=== PATIENT | female | born 1995 | race Caucasian/White ===

== ENCOUNTER 2016-07-25 22:56 | Emergency (ER) | payer OTHER ==
[2016-07-25 23:12] VITALS: BP 116/70; PULSE 97; TEMP 98.1; BMI 29.0
--- NOTE | 2016-07-25 23:18 | PDOC ---
History of Present Illness - General History Source: Patient Exam Limitations: No Limitations - History of Present Illness Initial Comments: 07/25/16 23:48 The patient is a 21 year old female with history of asthma who presents to the ED complaining of 1 week of nausea with suprapubic cramping and 3 days of blood streaked stool. No abdominal pain, vomiting, diarrhea, or constipation. No fever or chills. No urinary complaints. LMP 6 weeks ago, now spotting. <Juliette Fuchs - Last Filed: 07/25/16 23:48> <Kae Addison - Last Filed: 07/26/16 23:24> - General Chief Complaint: Nausea/Vomiting Stated Complaint: NAUSEA Time Seen by Provider: 07/25/16 23:17 Past History <Juliette Fuchs - Last Filed: 07/25/16 23:48> - Past Medical History Asthma: Yes - Immunization History Immunization Up to Date: Yes - Psycho/Social/Smoking Cessation Hx Anxiety: No Suicidal Ideation: No Smoking History: Never smoked Number of Cigarettes Smoked Daily: 0 Hx Alcohol Use: No Drug/Substance Use Hx: No Substance Use Type: None <Kae Addison - Last Filed: 07/26/16 23:24> - Past Medical History Allergies/Adverse Reactions: Allergies Allergy/AdvReac Type Severity Reaction Status Date / Time No Known Allergies Allergy Verified 07/25/16 23:09 Home Medications: Ambulatory Orders Nitrofurantoin Monohyd/M-Cryst [Macrobid -] 100 mg PO BID #14 capsule 07/25/16 Nitrofurantoin Monohyd/M-Cryst [Macrobid -] 100 mg PO BID #14 capsule 07/25/16 Review of Systems - Review of Systems Able to Perform ROS?: Yes Comments:: 07/25/16 23:53 GENERAL/CONSTITUTIONAL: No fever or chills. No weakness. HEAD, EYES, EARS, NOSE AND THROAT: No change in vision. No ear pain or discharge. No sore throat CARDIOVASCULAR: No chest pain or shortness of breath. RESPIRATORY: No cough, wheezing, or hemoptysis. GASTROINTESTINAL: +Nausea, +blood streaked stool. No vomiting, diarrhea or constipation. GENITOURINARY: No dysuria, frequency, or change in urination. MUSCULOSKELETAL: No joint or muscle swelling or pain. No neck or back pain. SKIN: No rash NEUROLOGIC: No headache, vertigo, loss of consciousness, or change in strength/ sensation. ENDOCRINE: No increased thirst. No abnormal weight change. HEMATOLOGIC/LYMPHATIC: No anemia, easy bleeding, or history of blood clots. ALLERGIC/IMMUNOLOGIC: No hives or skin allergy. <Juliette Fuchs - Last Filed: 07/25/16 23:48> *Physical Exam - Vital Signs Last Vital Signs Temp Pulse Resp BP Pulse Ox 98.1 F 97 H 18 116/70 100 07/25/16 23:11 07/25/16 23:11 07/25/16 23:11 07/25/16 23:11 07/25/16 23:11 - Physical Exam Comments: 07/26/16 00:08 GENERAL: Awake, alert, and fully oriented, in no acute distress HEAD: No signs of trauma EYES: PERRLA, EOMI, sclera anicteric, conjunctiva clear ENT: Auricles normal inspection, hearing grossly normal, nares patent, oropharynx clear without exudates. Moist mucosa NECK: Normal ROM, supple, no lymphadenopathy, JVD, or masses LUNGS: Breath sounds equal, clear to auscultation bilaterally. No wheezes, and no crackles HEART: Regular rate and rhythm, normal S1 and S2, no murmurs, rubs or gallops ABDOMEN: +Mild suprapubic tenderness. Soft, normoactive bowel sounds. No guarding, no rebound. No masses EXTREMITIES: Normal range of motion, no edema. No clubbing or cyanosis. No cords, erythema, or tenderness NEUROLOGICAL: Cranial nerves II through XII grossly intact. Normal speech, normal gait SKIN: Warm, Dry, normal turgor, no rashes or lesions noted. <Juliette Fuchs - Last Filed: 07/25/16 23:48> - Vital Signs Last Vital Signs Temp Pulse Resp BP Pulse Ox 98.1 F 97 H 18 116/70 100 07/25/16 23:11 07/25/16 23:11 07/25/16 23:11 07/25/16 23:11 07/25/16 23:11 <Kae Addison - Last Filed: 07/26/16 23:24> ED Treatment Course - ADDITIONAL ORDERS Additional order review: Laboratory Results 07/25/16 23:12 Urine Color Ltyellow Urine Appearance Clear Urine pH 5.0 Urine Protein Negative Urine Glucose (UA) Negative Urine Ketones Trace H Urine Blood 1+ H Urine Nitrite Negative Urine Bilirubin Negative Urine Urobilinogen Negative Ur Leukocyte Esterase 1+ H Urine RBC 3 Urine WBC 5 Ur Epithelial Cells Rare Urine Mucus Few Urine HCG, Qual Positive <Juliette Fuchs - Last Filed: 07/25/16 23:48> Medical Decision Making - Medical Decision Making 07/26/16 23:23 Pt has UTI in early . Boyfriend has chlamydia. I will treat UTI with macrobid. GC/CHlamydia culture pending. Pt wll follow with her manager action <Kae Addison - Last Filed: 07/26/16 23:24> *DC/Admit/Observation/Transfer - Attestations Scribe Attestion: 07/26/16 00:11 Documentation prepared by Juliette Fuchs, acting as medical data analyst for Kae Addison MD. <Juliette Fuchs - Last Filed: 07/25/16 23:48> - Discharge Dispostion Admit: No <Kae Addison - Last Filed: 07/26/16 23:24> Diagnosis at time of Disposition: UTI (urinary tract infection), test positive - Discharge Dispostion Disposition: HOME Condition at time of disposition: Stable - Prescriptions Prescriptions: Nitrofurantoin Monohyd/M-Cryst [Macrobid -] 100 mg PO BID #14 capsule Nitrofurantoin Monohyd/M-Cryst [Macrobid -] 100 mg PO BID #14 capsule - Referrals Referrals: Evelny Ugalde NP [Primary Care Provider] - Shayy Robertson MD [Staff Physician] - - Patient Instructions Printed Discharge Instructions: DI for Urinary Tract Infection (UTI)
[2016-07-25 23:26] LABS: URINE APPEARANCE CLEAR; URINE BILIRUBIN NEGATIVE (NEGATIVE); URINE COLOR LTYELLOW; URINE GLUCOSE (UA) NEGATIVE (NEGATIVE); URINE KETONE TRACE (NEGATIVE); URINE NITRITE NEGATIVE (NEGATIVE); URINE PROTEIN NEGATIVE (NEGATIVE); URINE UROBILINOGEN NEGATIVE E.U./dl (0.2-1.0)
[2016-07-25 23:28] LABS: URINE BLOOD 1+ (NEGATIVE); URINE LEUK ESTERASE 1+ (NEGATIVE)
[2016-07-25 23:30] LABS: URINE MUCUS FEW; URINE RBC 3 /hpf (0-3); URINE WBC 5 /hpf (3-5)
[2016-07-25] MEDS ORDERED: NITROFURANTOIN MACROCRYSTAL 50 MG CAPSULE (FP) PO SCH (23:45)
[2016-07-26] MEDS ORDERED: NITROFURANTOIN MACROCRYSTAL 50 MG CAPSULE (FP) ONE (00:19)
--- NOTE | 2016-07-29 14:13 | PDOC ---
Patient Follow-up (Call Back) - Post ED Follow - Up Condition at time of discharge: Stable Disposition at time of original discharge: HOME Reason for Call Back: Abnwl. Microbiology (lab called pt. + for chlamydia, - for GC, called pt. she was seen by adhesion tester at [facility] care today, they sent RX for treatment of chlamydia,)
== END 2016-07-26 00:49 | disposition home or self-care (01) ==
LOC: JER 22:56
DX: O23.31 Infections of other parts of urinary tract in pregnancy, first trimester (principal); Z3A.00 Weeks of gestation of pregnancy not specified; J45.909 Unspecified asthma, uncomplicated
CPT/HCPCS: 36415; 81003; 81015; 84703; 87491; 87591; 99282-25

== ENCOUNTER 2016-07-30 23:48 | Emergency (ER) | payer OTHER ==
[2016-07-31 00:20] VITALS: BP 124/73; PULSE 75; TEMP 97.4; BMI 28.9
[2016-07-31 00:50] LABS: EOSINOPHIL 1.5 % (0-4.5); MCH 29.2 pg (25.7-33.7); MCHC 33.3 g/dl (32.0-36.0); MEAN CELL VOLUME 87.9 fl (80-96); MEAN PLT VOLUME 9.1 fl (7.5-11.1); NEUTROPHILS 71.1 % (42.8-82.8); PLATELET COUNT 222 K/MM3 (134-434); RDW 12.8 % (11.6-15.6); WHITE BLOOD COUNT 10.6 K/mm3 (4.0-10.0)
[2016-07-31] MEDS ORDERED: SODIUM CHLORIDE 1,000 ML IV STA (01:04)
--- NOTE | 2016-07-31 01:04 | PDOC ---
History of Present Illness - History of Present Illness Initial Comments: 07/31/16 01:16 Patient is a 21 year old female (, 10 weeks) with significant medical hx of asthma who is presenting to the ED with heavy vaginal bleeding and lightheadedness for the past hour. The patient states her bleeding is significantly heavier than her normal menses and notes passing clots. She also complains of some associated suprapubic cramping since the onset of her symptoms. The patient states that she has not yet received an US with this . Denies any syncope, nausea, vomiting, diarrhea, complaints, chest pain, or shortness of breath. ASBESTOS HANDLER: Jess Gr CNM PMD: Evelyn Ugalde MD <Sofía Cotto - Last Filed: 07/31/16 01:19> <Jannette Hayes - Last Filed: 07/31/16 02:31> - General Chief Complaint: Vaginal Bleeding Stated Complaint: VAGINAL BLEEDING/10 WKS Past History <Sofía Cotto - Last Filed: 07/31/16 01:19> - Past Medical History Asthma: Yes - Immunization History Immunization Up to Date: Yes - Psycho/Social/Smoking Cessation Hx Anxiety: No Suicidal Ideation: No Smoking History: Never smoked Have you smoked in the past 12 months: No Number of Cigarettes Smoked Daily: 0 Information on smoking cessation initiated: No Hx Alcohol Use: No Drug/Substance Use Hx: No Substance Use Type: None <Jannette Hayes - Last Filed: 07/31/16 02:31> - Past Medical History Allergies/Adverse Reactions: Allergies Allergy/AdvReac Type Severity Reaction Status Date / Time No Known Allergies Allergy Verified 07/31/16 00:18 Home Medications: Ambulatory Orders NK [No Known Home Medication] 07/31/16 Review of Systems - Review of Systems Comments:: 07/31/16 01:19 GENERAL/CONSTITUTIONAL: No fever or chills. No weakness. HEAD, EYES, EARS, NOSE AND THROAT: No change in vision. No ear pain or discharge. No sore throat. CARDIOVASCULAR: Lightheadedness. No chest pain or shortness of breath. RESPIRATORY: No cough, wheezing, or hemoptysis. GASTROINTESTINAL: Abdominal cramping. No nausea, vomiting, diarrhea or constipation. GENITOURINARY: Vaginal bleeding. No dysuria, frequency, or change in urination. MUSCULOSKELETAL: No joint or muscle swelling or pain. No neck or back pain. ENDOCRINE: No increased thirst. No abnormal weight change. SKIN: No rash NEUROLOGIC: No headache, vertigo, loss of consciousness, or change in strength/ sensation. <KirtiSofía - Last Filed: 07/31/16 01:19> *Physical Exam - Vital Signs Last Vital Signs Temp Pulse Resp BP Pulse Ox 97.4 F L 75 20 124/73 100 07/31/16 00:18 07/31/16 00:18 07/31/16 00:18 07/31/16 00:18 07/31/16 00:18 - Physical Exam Comments: 07/31/16 01:20 GENERAL: Awake, alert, and fully oriented, in no acute distress HEAD: No signs of trauma EYES: PERRLA, EOMI, sclera anicteric, conjunctiva clear ENT: Auricles normal inspection, hearing grossly normal, nares patent, oropharynx clear without exudates. Moist mucosa NECK: Normal ROM, supple, no lymphadenopathy, JVD, or masses LUNGS: Breath sounds equal, clear to auscultation bilaterally. No wheezes, and no crackles HEART: Regular rate and rhythm, normal S1 and S2, no murmurs, rubs or gallops ABDOMEN: Soft, mild suprapubic tenderness, normoactive bowel sounds. No guarding, no rebound. No masses EXTREMITIES: Normal range of motion, no edema. No clubbing or cyanosis. No cords, erythema, or tenderness NEUROLOGICAL: Cranial nerves II through XII grossly intact. Normal speech, normal gait SKIN: Warm, Dry, normal turgor, no rashes or lesions noted. HEMATOLOGIC/LYMPHATIC: No anemia, easy bleeding, or history of blood clots. ALLERGIC/IMMUNOLOGIC: No hives or skin allergy. PELVIC: Cervix open few mm. Blood in vault. No CMT. No adnexal tenderness. <Sofía Cotto - Last Filed: 07/31/16 01:19> - Vital Signs Last Vital Signs Temp Pulse Resp BP Pulse Ox 97.4 F L 75 20 124/73 100 07/31/16 00:18 07/31/16 00:18 07/31/16 00:18 07/31/16 00:18 07/31/16 00:18 <Jannette Hayes - Last Filed: 07/31/16 02:31> ED Treatment Course - LABORATORY CBC & Chemistry Diagram: 07/31/16 00:20 07/31/16 00:20 - ADDITIONAL ORDERS Additional order review: 07/31/16 00:20 RBC 4.17 MCV 87.9 MCHC 33.3 RDW 12.8 MPV 9.1 Neutrophils % 71.1 D Lymphocytes % 19.7 D Monocytes % 6.7 Eosinophils % 1.5 Basophils % 1.0 <Sofía Cotto - Last Filed: 07/31/16 01:19> - LABORATORY CBC & Chemistry Diagram: 07/31/16 00:20 07/31/16 00:20 - ADDITIONAL ORDERS Additional order review: 07/31/16 00:20 RBC 4.17 MCV 87.9 MCHC 33.3 RDW 12.8 MPV 9.1 Neutrophils % 71.1 D Lymphocytes % 19.7 D Monocytes % 6.7 Eosinophils % 1.5 Basophils % 1.0 <Jannette Hayes - Last Filed: 07/31/16 02:31> Medical Decision Making - Medical Decision Making 07/31/16 01:02 21 yo F G1po at 10 weeks here wtih vaginal bleeding. 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 mild cramping. no abd pain . no prior ectopic or miscarriages. on exam mild suprapubic ttp, no rebound no guarding. no cmt, no adnexal masses. os open fingertip. blood in vaginal vault. differential: ecoptic, threatened ab, incomplete ab, plan labs blood tuype, c , us. 07/31/16 02:28 pt with confirmed IUP. yolk sac and pole. threatened ab. no detectable FHR at this time. recommend follow up with ob <Jannette Hayes - Last Filed: 07/31/16 02:31> *DC/Admit/Observation/Transfer - Attestations Scribe Attestion: 07/31/16 01:21 Documentation prepared by Sofía Cotto, acting as medical staff assistant for Jannette Hayes MD. <Sofía Cotto - Last Filed: 07/31/16 01:19> - Discharge Dispostion Admit: No <Jannette Hayes - Last Filed: 07/31/16 02:31> Diagnosis at time of Disposition: Threatened - Discharge Dispostion Disposition: HOME - Referrals Referrals: Evelyn Ugalde NP [Primary Care Provider] - - Patient Instructions Printed Discharge Instructions: Threatened Additional Instructions: follow up with your racker octave board. return for any problems or concerns. nothing per vagina until bleeding stops. return for feeling dizzy, lightheaded or any concerns.
[2016-07-31 01:23] LABS: ALBUMIN 3.6 g/dl (3.4-5.0); ANION GAP 9 (8-16); BILIRUBIN,TOTAL 0.4 mg/dL (0.2-1.0); CALCIUM 9.2 mg/dL (8.5-10.1); CO2 25 mmol/L (21-32); COCKROFT - GAULT 160.65; CREATININE 0.6 mg/dL (0.55-1.02); GLUCOSE,RANDOM 79 mg/dL (74-106); SGOT/AST 15 U/L (15-37); TOT PROT 6.9 g/dl (6.4-8.2)
[2016-07-31 01:39] LABS: ALK PHOS 48 U/L (45-117); SGPT/ALT 13 U/L (12-78)
== END 2016-07-31 02:54 | disposition home or self-care (01) ==
LOC: JER 23:48
PROC: 3E0337Z Introduction of Electrolytic and Water Balance Substance into Peripheral Vein, Percutaneous Approach (ICD-10-PCS; principal; 2016-07-30)
DX: O20.0 Threatened abortion (principal); Z3A.10 10 weeks gestation of pregnancy
CPT/HCPCS: 36415; 76817-TC; 80053; 84702; 85025; 86850; 86900; 86901; 99283-25

== ENCOUNTER 2016-08-13 08:15 | Emergency (ER) | payer OTHER ==
[2016-08-13 08:25] VITALS: TEMP 98.6; BMI 29.0
--- NOTE | 2016-08-13 09:08 | PDOC ---
*Physical Exam - Vital Signs Last Vital Signs Temp Pulse Resp BP Pulse Ox 98.6 F 96 H 16 125/86 100 08/13/16 08:20 08/13/16 08:20 08/13/16 08:20 08/13/16 08:20 08/13/16 08:20 - Physical Exam Comments: 08/13/16 09:08 Pt seen by the Advanced Practice Provider under my direct supervision Pt interviewed and examined Ancillary studies reviewed I agree with plan as outlined by the Advanced Practice Provider ED Treatment Course - LABORATORY CBC & Chemistry Diagram: 08/13/16 10:20 08/13/16 10:20 *DC/Admit/Observation/Transfer Diagnosis at time of Disposition: Spontaneous miscarriage - Discharge Dispostion Disposition: HOME Condition at time of disposition: Good - Referrals Referrals: Evelyn Blount, RN [Primary Care Provider] - - Patient Instructions Printed Discharge Instructions: DI for Miscarriage Additional Instructions: At this point I recommend taking Tylenol for discomfort and using a heating pad to the affected area. I also do recommend you follow up with her LAUNDRY ATTENDANT and take copy of your labs and ultrasound with you. Return to the ED if pain becomes severe or bleeding becomes heavy. - Post Discharge Activity Work/School Note: Back to Work
--- NOTE | 2016-08-13 09:30 | PDOC ---
History of Present Illness - General Chief Complaint: Vaginal Bleeding Stated Complaint: Vaginal Bleeding/6 WEEKS Time Seen by Provider: 08/13/16 08:45 History Source: Patient Exam Limitations: No Limitations - History of Present Illness Travel History: No Initial Comments: 08/13/16 08:50 21-year-old female approximately 7 weeks presents with vaginal bleeding since last night associated with small clots. Patient now complaining of suprapubic cramping and bright red blood. Patient states was here 2 weeks ago and had an ultrasound done which showed a gestational sac without a heart rate and was told it may be too early to detect. Patient states then saw her AUTOMATIC SPREADER OPERATOR this past Wednesday which checked her urine and told to have an ultrasound done this week. Timing/Duration: reports: getting worse, changing over time Quality: reports: mild, cramping Abdominal Pain Onset Location: reports: suprapubic Pain Radiation: reports: no radiation Activities at Onset: reports: none Aggravating Factors: improves with: None Alleviating Factors: improves with: None Past History - Travel Traveled outside of the country in the last 30 days: No Close contact w/someone who was outside of country & ill: No - Past Medical History Allergies/Adverse Reactions: Allergies Allergy/AdvReac Type Severity Reaction Status Date / Time No Known Allergies Allergy Verified 08/13/16 08:20 Asthma: Yes - Reproductive History Therapeutic (s) & number: No - Immunization History Immunization Up to Date: Yes - Psycho/Social/Smoking Cessation Hx Anxiety: No Suicidal Ideation: No Smoking History: Never smoked Have you smoked in the past 12 months: No Number of Cigarettes Smoked Daily: 0 Information on smoking cessation initiated: No Hx Alcohol Use: No Drug/Substance Use Hx: No Substance Use Type: None Patient Lives Alone: No Lives with/in: spouse/SO Review of Systems - Review of Systems Able to Perform ROS?: Yes Constitutional: No: Symptoms Reported HEENTM: No: Symptoms Reported Respiratory: No: Symptoms reported Cardiac (ROS): No: Symptoms Reported ABD/GI: Yes: Abdominal cramping : Yes: Discharge Musculoskeletal: No: Symptoms Reported Integumentary: No: Symptoms Reported *Physical Exam - Vital Signs Last Vital Signs Temp Pulse Resp BP Pulse Ox 98.6 F 96 H 16 125/86 100 08/13/16 08:20 08/13/16 08:20 08/13/16 08:20 08/13/16 08:20 08/13/16 08:20 - Physical Exam General Appearance: Yes: Nourished, Appropriately Dressed. No: Apparent Distress HEENT: negative: Pale Conjunctivae Neck: positive: Normal Thyroid Respiratory/Chest: positive: Lungs Clear, Normal Breath Sounds. negative: Respiratory Distress, Accessory Muscle Use Cardiovascular: positive: Regular Rhythm, Regular Rate. negative: Murmur Female Pelvic Exam: positive: cervical os closed, vaginal bleeding (moderate amount of bright red. No clots). negative: adnexal tenderness Gastrointestinal/Abdominal: positive: Soft, Tenderness (mid suprapubic) Integumentary: positive: Normal Color, Warm, Moist ED Treatment Course - LABORATORY CBC & Chemistry Diagram: 08/13/16 10:20 08/13/16 10:20 - RADIOLOGY Radiology Studies Ordered: Category Date Time Status <14WKS US [US] Stat Ultrasound 08/13/16 09:21 Ordered Medical Decision Making - Medical Decision Making 08/13/16 08:57 Patient with vaginal bleeding along with suprapubic cramping since yesterday. Patient had an ultrasound done on 07/30 which showed a gestational sac without a heart rate. Suggesting demise since patient's beta hCG was approximately 50,000. 08/13/16 09:59 Laboratory Tests 07/25/16 07/26/16 07/31/16 23:12 00:30 00:20 Beta HCG, Quant 30755.1 Ur Leukocyte Esterase 1+ H Urine WBC 5 C.trachomatis Ampl DNA Positive H N. gonorrhoeae (KIRSTEN) Negative Patient states was given medication ( 2 tabs) approximately 2 weeks ago which she thinks was azithromycin for treatment of chlamydia. 08/13/16 11:26 Laboratory Tests 07/31/16 08/13/16 08/13/16 00:20 10:20 10:20 WBC 10.0 Hgb 12.8 Hct 38.4 Plt Count 260 Neutrophils % 74.2 Sodium 137 Potassium 4.3 Anion Gap 9 BUN 10 D AST 15 ALT 15 Beta HCG, Quant 17288.1 08/13/16 10:20 WBC Hgb Hct Plt Count Neutrophils % Sodium Potassium Anion Gap BUN AST ALT Beta HCG, Quant 27571.7 Laboratory Tests 07/31/16 08/13/16 00:20 10:20 Hgb 12.2 D Hct 38.4 08/13/16 12:16 Ultrasound shows an intrauterine gestational sac identified within the endocervical canal which is consistent with in progress. A yolk sac is noted within the gestational sac with no pole identified. Patient will be discharged home to follow-up with her AUTOMATIC SPREADER OPERATOR is take Tylenol for discomfort. 08/13/16 12:16 *DC/Admit/Observation/Transfer Diagnosis at time of Disposition: Spontaneous - Discharge Dispostion Disposition: HOME Condition at time of disposition: Good - Referrals Referrals: Evelyn Blount, RN [Primary Care Provider] - - Patient Instructions Printed Discharge Instructions: DI for Miscarriage Additional Instructions: At this point I recommend taking Tylenol for discomfort and using a heating pad to the affected area. I also do recommend you follow up with her AUTOMATIC SPREADER OPERATOR and take copy of your labs and ultrasound with you. Return to the ED if pain becomes severe or bleeding becomes heavy.
[2016-08-13] MEDS ORDERED: ACETAMINOPHEN 500 MG TABLET (FP) PO ONE (10:01)
[2016-08-13] MEDS ORDERED: ACETAMINOPHEN 325 MG TABLET (FP) ONE ×3 (10:02→10:16)
[2016-08-13 10:33] LABS: BASOPHIL 0.7 % (0-2.0); EOSINOPHIL 1.6 % (0-4.5); MCH 29.4 pg (25.7-33.7); MCHC 33.3 g/dl (32.0-36.0); MEAN CELL VOLUME 88.2 fl (80-96); MEAN PLT VOLUME 9.4 fl (7.5-11.1); NEUTROPHILS 74.2 % (42.8-82.8); PLATELET COUNT 260 K/MM3 (134-434); RDW 13.2 % (11.6-15.6)
[2016-08-13 10:59] LABS: ALBUMIN 3.9 g/dl (3.4-5.0); ALK PHOS 49 U/L (45-117); ANION GAP 9 (8-16); BILIRUBIN,TOTAL 0.6 mg/dL (0.2-1.0); CALCIUM 9.6 mg/dL (8.5-10.1); CO2 25 mmol/L (21-32); CREATININE 0.6 mg/dL (0.55-1.02); GLUCOSE,RANDOM 79 mg/dL (74-106); SGOT/AST 15 U/L (15-37); SGPT/ALT 15 U/L (12-78); TOT PROT 7.6 g/dl (6.4-8.2)
[2016-08-13 12:34] VITALS: BP 124/74; PULSE 75
== END 2016-08-13 12:34 | disposition home or self-care (01) ==
LOC: JER 08:15
DX: O03.4 Incomplete spontaneous abortion without complication (principal); Z3A.01 Less than 8 weeks gestation of pregnancy
CPT/HCPCS: 36415; 76801-TC; 76817-TC; 80053; 84702; 85025; 99282-25

== ENCOUNTER 2016-08-13 14:26 | Emergency (ER) | payer OTHER ==
[2016-08-13 14:39] VITALS: TEMP 98; BMI 29.0
--- NOTE | 2016-08-13 14:42 | PDOC ---
*Physical Exam - Vital Signs Last Vital Signs Temp Pulse Resp BP Pulse Ox 98 F 85 20 116/90 100 08/13/16 14:37 08/13/16 14:37 08/13/16 14:37 08/13/16 14:37 08/13/16 14:37 - Physical Exam Comments: 08/13/16 14:42 Pt seen by the Advanced Practice Provider under my direct supervision Pt interviewed and examined I suspect vasovagal syncope EKG pending I agree with plan as outlined by the Advanced Practice Provider Outgoing EP available for consultation with [facility] as needed 08/13/16 16:54 08/13/16 16:55 *DC/Admit/Observation/Transfer Diagnosis at time of Disposition: Syncope
[2016-08-13] MEDS ORDERED: SODIUM CHLORIDE 1,000 ML IV STA (16:07)
--- NOTE | 2016-08-13 16:28 | PDOC ---
History of Present Illness - General Chief Complaint: Syncope/Near Syncope Stated Complaint: SYNCOPE Time Seen by Provider: 08/13/16 14:41 History Source: Patient Exam Limitations: No Limitations - History of Present Illness Initial Comments: 08/13/16 16:28 21-year-old female presents to the ED status post syncopal episode. Patient states was just discharged here from the ER with diagnosis of spontaneous miscarriage. Patient states did not have any thing to eat since last night and when she saw the blood between her legs and with that her hand the next thing she knows, she was on the floor with her boyfriend at her side. Patient denies chest pain, shortness of breath and boyfriend states patient did not hit her head and collapsed back into the car when she stood up prior to episode. Patient denies history of anemia, cardiac disease, or previous syncopal episodes. Presenting Symptoms: Syncope Severity/Quality: reports: mild Associated Symptoms: Yes: Syncope Past History - Past Medical History Allergies/Adverse Reactions: Allergies Allergy/AdvReac Type Severity Reaction Status Date / Time No Known Allergies Allergy Verified 08/13/16 14:37 Home Medications: Ambulatory Orders NK [No Known Home Medication] 08/13/16 Asthma: Yes - Reproductive History Therapeutic (s) & number: No - Immunization History Immunization Up to Date: Yes - Psycho/Social/Smoking Cessation Hx Anxiety: No Suicidal Ideation: No Smoking History: Never smoked Have you smoked in the past 12 months: No Number of Cigarettes Smoked Daily: 0 Hx Alcohol Use: No Drug/Substance Use Hx: No Substance Use Type: None Patient Lives Alone: No Lives with/in: spouse/SO Review of Systems - Review of Systems Able to Perform ROS?: Yes Constitutional: No: Symptoms Reported HEENTM: No: Symptoms Reported Respiratory: No: Symptoms reported Cardiac (ROS): Yes: Syncope ABD/GI: No: Symptoms Reported : No: Symptoms Reported Musculoskeletal: No: Symptoms Reported Integumentary: No: Symptoms Reported Neurological: Yes: Weakness (mild generalized) Hematologic/Lymphatic: No: Symptoms Reported *Physical Exam - Vital Signs Last Vital Signs Temp Pulse Resp BP Pulse Ox 98 F 92 H 20 121/69 99 08/13/16 14:37 08/13/16 17:24 08/13/16 17:24 08/13/16 17:24 08/13/16 17:24 - Physical Exam General Appearance: Yes: Nourished, Appropriately Dressed. No: Apparent Distress HEENT: negative: Pale Conjunctivae Neck: positive: Supple Respiratory/Chest: positive: Lungs Clear, Normal Breath Sounds. negative: Respiratory Distress, Accessory Muscle Use Cardiovascular: positive: Regular Rhythm, Regular Rate. negative: Murmur Female Pelvic Exam: positive: vaginal bleeding (moderate amount of bright red blood noted) Gastrointestinal/Abdominal: positive: Soft. negative: Tenderness Musculoskeletal: negative: CVA Tenderness Extremity: positive: Normal Capillary Refill. negative: Pedal Edema Integumentary: positive: Normal Color, Warm, Moist Neurologic: positive: Motor Strength 5/5 (ambulatory) Heart Score/ECG Review - ECG Intrepretation Rhythm: Regular Rhythm (Rate 93. No acute findings. No ST elevation or depression no arrhythmia..) ED Treatment Course - Medications Given in the ED: ED Medications Discontinued Medications Generic Name Dose Route Start Last Admin Trade Name Freq PRN Reason Stop Dose Admin Sodium Chloride 1,000 mls @ 1,000 mls/hr 08/13/16 16:07 08/13/16 16:21 Normal Saline - IV 08/13/16 17:06 1,000 mls/hr ASDIR STA Administration Medical Decision Making - Medical Decision Making 08/13/16 16:42 Patient status post syncopal episode EMS did a BGM and had recorded BGM of 92. Patient's vital signs are stable upon arrival. IV fluids were infusing. Patient requesting to eat. Patient ordered for IV fluids, EKG and told to eat her food that she had purchased on the way home. If patient remains stable in regards to blood pressure and complaints patient will be discharged home. 08/13/16 17:19 *DC/Admit/Observation/Transfer Diagnosis at time of Disposition: Syncope Qualifiers: Encounter type: initial encounter - Discharge Dispostion Disposition: HOME Condition at time of disposition: Improved - Referrals Referrals: Evelyn Ugalde NP [Primary Care Provider] - - Patient Instructions Printed Discharge Instructions: DI for Syncope in Adults (Fainting) Additional Instructions: Please continue to stay well-hydrated drinking fluids throughout the day. May take Tylenol for discomfort. Eat small frequent meals and if symptoms of dizziness, nausea severe pathology pain or heavy vaginal bleeding occur please return to the ED.
[2016-08-13 17:25] VITALS: BP 121/69; PULSE 92
--- NOTE | 2016-08-14 09:46 | EKG ---
Test Reason : Blood Pressure : / mmHG Vent. Rate : 093 BPM Atrial Rate : 093 BPM P-R Int : 170 ms QRS Dur : 082 ms QT Int : 346 ms P-R-T Axes : 048 051 047 degrees QTc Int : 430 ms NORMAL SINUS RHYTHM NORMAL ECG NO PREVIOUS ECGS AVAILABLE Confirmed by SHELLI MORENO MD ([id number]) on 08/14/2016 9:46:01 AM Referred By: Confirmed By:SHELLI MORENO MD
== END 2016-08-13 17:30 | disposition home or self-care (01) ==
LOC: JER 14:26
PROC: 3E0337Z Introduction of Electrolytic and Water Balance Substance into Peripheral Vein, Percutaneous Approach (ICD-10-PCS; principal; 2016-08-13)
DX: R55 Syncope and collapse (principal)
CPT/HCPCS: 93005; 93010; 96360; 99283-25

== ENCOUNTER 2017-01-01 06:46 | Emergency (ER) | payer SELFPAY ==
[2017-01-01 07:02] VITALS: BP 148/92; PULSE 92; TEMP 98.3; BMI 29.0
--- NOTE | 2017-01-01 07:14 | PDOC ---
History of Present Illness - General Chief Complaint: Eye Problem Stated Complaint: EYE PROBLEM Time Seen by Provider: 01/01/17 07:13 History Source: Patient Exam Limitations: No Limitations - History of Present Illness Initial Comments: 01/01/17 07:14 Patient is a 21 year old female with distant history of asthma presenting with concern for pink eye of one day. Patient started having symptoms of an upper respiratory infection one week ago including fever, cough, runny nose, sore throat and last night noted her eyes were itchy and redder than normal with some yellow mucus-like discharge in the medial and lateral corners. Symptoms were partially relieved with "[facility]" OTC eye drops. Endorses cough, sore throat, shortness of breath. Denies current fever, chills, wheezing, abdominal pain, nausea, vomiting, diarrhea, constipation and rashes. Denies current flu shot. Patient denies smoking, drinking, and drug use. 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 Does not wear contact lenses. Past History - Past Medical History Allergies/Adverse Reactions: Allergies Allergy/AdvReac Type Severity Reaction Status Date / Time No Known Allergies Allergy Verified 01/01/17 06:55 Home Medications: Ambulatory Orders Famotidine [Pepcid] 20 mg PO DAILY #7 tablet 12/12/16 Mag Hydrox/Al Hydrox/Simeth [Mylanta Suspension -] 30 ml PO Q6H #1 bottle Asthma: Yes - Reproductive History Therapeutic (s) & number: No - Immunization History Immunization Up to Date: Yes - Suicide/Smoking/Psychosocial Hx Smoking History: Never smoked Have you smoked in the past 12 months: No Number of Cigarettes Smoked Daily: 0 Information on smoking cessation initiated: No Hx Alcohol Use: No Drug/Substance Use Hx: No Substance Use Type: None Review of Systems - Review of Systems Able to Perform ROS?: Yes Comments:: 01/01/17 08:33 GEN: +recent illness; Denies fever, chills HEENTM: +sore throat, +congested nose and ears; Denies changes in vision Respiratory: +Cough, +Shortness of Breath Cardiac: Denies Chest Pain, Syncope ABD/GI: Denies Abdominal Pain, Nausea, Vomiting, Diarrhea, Constipation : Denies Dysuria, Burning on urination Musculoskeletal: Denies muscle or joint pain Integumentary: Denies diaphoresis, rashes, bruises Neurological: Denies RODRIGUEZ, dizziness, weakness All Other Systems Reviewed and Negative Is the patient limited Latvian proficient: No *Physical Exam - Vital Signs Last Vital Signs Temp Pulse Resp BP Pulse Ox 98.3 F 92 H 20 148/92 99 01/01/17 06:55 01/01/17 06:55 01/01/17 06:55 01/01/17 06:55 01/01/17 06:55 - Physical Exam Comments: 01/01/17 08:33 GENERAL: Nourished, Appropriately dressed, AAOx3, NAD HEAD: NCAT EYES: PERRLA, EOMI, mild b/l medial and lateral conjunctival injections, sclera anicteric ENT: hearing grossly normal, TM intact and pearly, nares patent, mild congestion , productive cough NECK: Supple, Normal ROM, no LAD RESP: Speaking in full sentences, symmetrical chest expansion, no respiratory distress, lungs CTAB HEART: RRR, normal S1-S2, no MRG ABDOMEN: Soft, NTND, no guarding, no rebound. EXTREMITIES: Normal inspection, Normal ROM NEUROLOGICAL: CN II-XII grossly intact, normal speech, normal gait, no focal sensorimotor deficits SKIN: Warm, Dry, normal turgor, no rashes or lesions noted. Medical Decision Making - Medical Decision Making 01/01/17 08:36 21 year old female with recent URI presenting with mild conjunctival injections and c/o discharge Ddx includes but is not limited to URI, conjunctivitis (allergic, viral, bacterial), allergies Patient was educated about the various forms of conjunctivitis and concerning symptoms. She was informed this was most likely viral but was offered and declined having a prescription for abx drops sent to her pharmacy. Patient does not have a PCP and was given a referral Return precautions were given and patient verbalized her understanding and agreement. *DC/Admit/Observation/Transfer Diagnosis at time of Disposition: URI (upper respiratory infection) Qualifiers: URI type: unspecified viral URI Qualified Code(s): J06.9 - Acute upper respiratory infection, unspecified - Discharge Dispostion Disposition: HOME Condition at time of disposition: Stable Admit: No - Referrals Referrals: Kiley Soria MD [Staff Physician] - - Patient Instructions Printed Discharge Instructions: DI for Viral Upper Respiratory Infection -- Adult, The Eyes Have It: Conjunctivitis Additional Instructions: If you continue to have problems with your eyes you can follow up with Dr. Saini at [facility] I have included a referral if you start to have significant worsening of your symptoms or develop any new or concerning symptoms you should return to the emergency department. Print Language: ICELANDIC - Post Discharge Activity Forms/Work/School Notes: Back to Work
--- NOTE | 2017-01-01 07:28 | PDOC ---
Attending Attestation - HPI HPI: 01/01/17 08:08 The patient is a 22 year old female with a significant PMH of asthma who presents to the emergency department with congestion, cough, and red eyes beginning approximately yesterday. - Physicial Exam PE: 01/01/17 08:09 Vitals: Triage Vital signs reviewed General Appearance: No acute distress, well nourished well developed, Eyes: (+) Mild conjunctival injection. Pupils equal reactive round, extraocular movement intact Nose: (+) Nasal congestion. Nares patent bilaterally. Throat: Posterior oropharynx without erythema, mucous membranes moist. - Medical Decision Making 01/01/17 08:09 Plan: Patient presents with cold-like symptoms, most likely virus that will resolve in 5-7 days. Pt. will be given a work note until Wednesday. <Levar Marmolejo - Last Filed: 01/01/17 08:13> - Resident Resident Name: Bassem Frankel - ED Attending Attestation I have performed the following: I have examined & evaluated the patient, The case was reviewed & discussed with the resident, I agree w/resident's findings & plan, Exceptions are as noted - Medical Decision Making 01/01/17 08:33 Well-appearing no apparent distress history and examination consistent with viral URI no evidence of bacterial conjunctivitis Supportive care discussed with patient decongestant/ALLERGY pill Patient will follow-up with her primary care provider Findings, the need for follow-up and strict return instructions discussed with patient. <Mor Galvan - Last Filed: 01/01/17 08:33>
== END 2017-01-01 08:45 | disposition home or self-care (01) ==
LOC: JER 06:46
DX: J06.9 Acute upper respiratory infection, unspecified (principal); H10.33 Unspecified acute conjunctivitis, bilateral
CPT/HCPCS: 99281-25

== ENCOUNTER 2017-01-30 03:18 | Emergency (ER) | payer SELFPAY ==
[2017-01-30 04:02] VITALS: TEMP 97.7; BMI 29.0
[2017-01-30 04:16] LABS: URINE APPEARANCE SLCLOUDY; URINE BILIRUBIN NEGATIVE (NEGATIVE); URINE BLOOD NEGATIVE (NEGATIVE); URINE COLOR YELLOW; URINE GLUCOSE (UA) NEGATIVE (NEGATIVE); URINE KETONE NEGATIVE (NEGATIVE); URINE NITRITE NEGATIVE (NEGATIVE); URINE PROTEIN NEGATIVE (NEGATIVE); URINE UROBILINOGEN NEGATIVE mg/dL (0.2-1.0)
--- NOTE | 2017-01-30 04:30 | PDOC ---
History of Present Illness - General History Source: Patient Exam Limitations: No Limitations - History of Present Illness Initial Comments: 01/30/17 04:31 The patient is a 21-year-old female with no significant past medical history, and presents to the emergency department with intermittent left flank pain. She states she experiences flank pain once every year due to kidney gravel. She states the pain is a pinching sensation that shoots up her back and she has RLQ discomfort. She reports she has not taken any pain medications. The patient denies chest pain, shortness of breath, headache and dizziness. The patient denies fever, chills, nausea, vomit, diarrhea and constipation. The patient denies dysuria, frequency, urgency and hematuria. LMP: late Past family medical hx: aunts have kidney stones Allergies: NKDA Past Surgical History: Social History: PCP: Dr. Evelyn Ugalde <Gina Hong - Last Filed: 01/30/17 04:31> <Kae Addison - Last Filed: 01/31/17 01:20> - General Chief Complaint: Pain, Acute Stated Complaint: LOWER BACK PAIN Time Seen by Provider: 01/30/17 03:39 Past History <Gina Hong - Last Filed: 01/30/17 04:31> - Past Medical History Asthma: Yes COPD: No Kidney Stones: Yes - Reproductive History Therapeutic (s) & number: No - Immunization History Immunization Up to Date: Yes - Suicide/Smoking/Psychosocial Hx Smoking History: Never smoked Have you smoked in the past 12 months: No Number of Cigarettes Smoked Daily: 0 Information on smoking cessation initiated: No Hx Alcohol Use: No Drug/Substance Use Hx: No Substance Use Type: None <Kae Addison - Last Filed: 01/31/17 01:20> - Past Medical History Allergies/Adverse Reactions: Allergies Allergy/AdvReac Type Severity Reaction Status Date / Time No Known Allergies Allergy Verified 01/01/17 06:55 Home Medications: Ambulatory Orders NK [No Known Home Medication] 01/30/17 Review of Systems - Review of Systems Able to Perform ROS?: Yes Comments:: 01/30/17 04:31 GENERAL/CONSTITUTIONAL: No fever or chills. No weakness. HEAD, EYES, EARS, NOSE AND THROAT: No change in vision. No ear pain or discharge. No sore throat. CARDIOVASCULAR: No chest pain or shortness of breath. RESPIRATORY: No cough, wheezing, or hemoptysis. GASTROINTESTINAL: (+) Right abdominal pain. No nausea, vomiting, diarrhea or constipation. GENITOURINARY: No dysuria, frequency, or change in urination. (+) Left flank pain. MUSCULOSKELETAL: No joint or muscle swelling or pain. No neck or back pain. SKIN: No rash NEUROLOGIC: No headache, vertigo, loss of consciousness, or change in strength/ sensation. ENDOCRINE: No increased thirst. No abnormal weight change. HEMATOLOGIC/LYMPHATIC: No anemia, easy bleeding, or history of blood clots. ALLERGIC/IMMUNOLOGIC: No hives or skin allergy. <Gina Hong - Last Filed: 01/30/17 04:31> *Physical Exam - Vital Signs Last Vital Signs Temp Pulse Resp BP Pulse Ox 97.7 F 74 19 132/79 100 01/30/17 04:00 01/30/17 04:00 01/30/17 04:00 01/30/17 04:00 01/30/17 04:00 - Physical Exam Comments: 01/30/17 04:32 GENERAL: Awake, alert, and fully oriented, in no acute distress HEAD: No signs of trauma EYES: PERRLA, EOMI, sclera anicteric, conjunctiva clear ENT: Auricles normal inspection, hearing grossly normal, nares patent, oropharynx clear without exudates. Moist mucosa NECK: Normal ROM, supple, no lymphadenopathy, JVD, or masses LUNGS: Breath sounds equal, clear to auscultation bilaterally. No wheezes, and no crackles HEART: Regular rate and rhythm, normal S1 and S2, no murmurs, rubs or gallops ABDOMEN: Soft, nontender, normoactive bowel sounds. No guarding, no rebound. No masses EXTREMITIES: Normal range of motion, no edema. No clubbing or cyanosis. No cords, erythema, or tenderness NEUROLOGICAL: Cranial nerves II through XII grossly intact. Normal speech, normal gait SKIN: Warm, Dry, normal turgor, no rashes or lesions noted. <Gina Hong - Last Filed: 01/30/17 04:31> - Vital Signs Last Vital Signs Temp Pulse Resp BP Pulse Ox 97.7 F 74 19 132/79 100 01/30/17 04:00 01/30/17 04:00 01/30/17 04:00 01/30/17 04:00 01/30/17 04:00 <Kae Addison - Last Filed: 01/31/17 01:20> ED Treatment Course - ADDITIONAL ORDERS Additional order review: Laboratory Results 01/30/17 04:02 Urine Color Yellow Urine Appearance Slcloudy Urine pH 5.0 D Ur Specific [place] 1.024 Urine Protein Negative Urine Glucose (UA) Negative Urine Ketones Negative Urine Blood Negative Urine Nitrite Negative Urine Bilirubin Negative Urine Urobilinogen Negative Urine HCG, Qual Negative <Gina Hong - Last Filed: 01/30/17 04:31> - ADDITIONAL ORDERS Additional order review: Laboratory Results 01/30/17 04:02 Urine Color Yellow Urine Appearance Slcloudy Urine pH 5.0 D Ur Specific [place] 1.024 Urine Protein Negative Urine Glucose (UA) Negative Urine Ketones Negative Urine Blood Negative Urine Nitrite Negative Urine Bilirubin Negative Urine Urobilinogen Negative Urine HCG, Qual Negative <Kae Addison - Last Filed: 01/31/17 01:20> Medical Decision Making - Medical Decision Making 01/31/17 01:20 Pt comes with flank pain and she thinks that she has a UTI or a stone, or that she may be . She has none of the above. She will be discharged home. <Kae Addison - Last Filed: 01/31/17 01:20> *DC/Admit/Observation/Transfer - Attestations Scribe Attestion: 01/30/17 04:32 Documentation prepared by Gina Hong, acting as medical record technician for Kae Addison MD/. <Gina Hong - Last Filed: 01/30/17 04:31> - Discharge Dispostion Admit: No <Kae Addison - Last Filed: 01/31/17 01:20> Diagnosis at time of Disposition: Flank pain - Discharge Dispostion Disposition: HOME Condition at time of disposition: Stable - Referrals Referrals: Evelyn Ugalde NP [Primary Care Provider] - - Patient Instructions Printed Discharge Instructions: DI for Flank Pain - Post Discharge Activity
[2017-01-30 04:37] VITALS: BP 119/76; PULSE 80
[2017-01-30 17:42] LABS: URINE LEUK ESTERASE 1+ (NEGATIVE)
[2017-01-30 20:50] LABS: URINE BACTERIA FEW /hpf (NEGATIVE)
== END 2017-01-30 04:37 | disposition home or self-care (01) ==
LOC: JER 03:18
DX: R10.31 Right lower quadrant pain (principal)
CPT/HCPCS: 81003; 81015; 84703; 87086; 99281-25

== ENCOUNTER 2018-05-24 18:30 | Emergency (ER) | payer OTHER ==
--- NOTE | 2018-05-24 19:05 | PDOC ---
Rapid Medical Evaluation Time Seen by Provider: 05/24/18 19:03 Medical Evaluation: Allergies Allergy/AdvReac Type Severity Reaction Status Date / Time No Known Allergies Allergy Verified 01/01/17 06:55 05/24/18 19:03 I have performed a brief in-person evaluation of this patient. The patient presents with a chief complaint of: abdominal cramping. LMP-04/11/18 , White vaginal discharge Pertinent physical exam findings: Abd SNTND. I have ordered the following: labs, urine The patient will proceed to the ED for further evaluation. Discharge Disposition - Diagnosis Abdominal cramping - Referrals - Patient Instructions - Post Discharge Activity
[2018-05-24 19:08] VITALS: BP 147/87; PULSE 103; TEMP 98.1; BMI 30.2
--- NOTE | 2018-05-24 21:05 | PDOC ---
History of Present Illness - General Chief Complaint: Vaginal Sxs Stated Complaint: CRAMPS Time Seen by Provider: 05/24/18 19:03 History Source: Patient - History of Present Illness Initial Comments: 23 yo F Past History - Past Medical History Allergies/Adverse Reactions: Allergies Allergy/AdvReac Type Severity Reaction Status Date / Time No Known Allergies Allergy Verified 05/24/18 19:04 Home Medications: Ambulatory Orders NK [No Known Home Medication] 01/30/17 Asthma: Yes COPD: No Kidney Stones: Yes - Reproductive History Therapeutic (s) & number: No - Immunization History Immunization Up to Date: Yes - Suicide/Smoking/Psychosocial Hx Smoking History: Never smoked Have you smoked in the past 12 months: No Number of Cigarettes Smoked Daily: 0 Hx Alcohol Use: No Drug/Substance Use Hx: No Substance Use Type: None *Physical Exam - Vital Signs Last Vital Signs Temp Pulse Resp BP Pulse Ox 98.1 F 103 H 18 147/87 99 05/24/18 19:04 05/24/18 19:04 05/24/18 19:04 05/24/18 19:04 05/24/18 19:04 Moderate Sedation - Procedure Monitoring Vital Signs: Procedure Monitoring Vital Signs Temperature 98.1 F 05/24/18 19:04 Pulse Rate 103 H 05/24/18 19:04 Respiratory Rate 18 05/24/18 19:04 Blood Pressure 147/87 05/24/18 19:04 O2 Sat by Pulse Oximetry (%) 99 05/24/18 19:04 ED Treatment Course - LABORATORY CBC & Chemistry Diagram: 05/24/18 21:00 05/24/18 21:00 *DC/Admit/Observation/Transfer Diagnosis at time of Disposition: Abdominal cramping - Discharge Dispostion Disposition: HOME Decision to Admit order: No - Referrals Referrals: Aster Siddiqi [Primary Care Provider] - - Patient Instructions Printed Discharge Instructions: DI for Vaginal Discharge Additional Instructions: you were seen in the emergency department for the evaluation of your abdominal cramping. your labs were within normal limits and your was negative. please follow up with your primary medical doctor within 1 week after discharge please return to the emergency department if you have worsening symptoms or new concerning symptoms such as vaginal discharge and fevers. thank you. you will receive a call if your STD culture is positive. thank you. - Post Discharge Activity Forms/Work/School Notes: Back to Work
--- NOTE | 2018-05-24 21:10 | PDOC ---
Attending Attestation - Resident Resident Name: AshleyToño - ED Attending Attestation I have performed the following: I have examined & evaluated the patient, The case was reviewed & discussed with the resident, I agree w/resident's findings & plan, Exceptions are as noted - HPI HPI: 05/24/18 21:09 23 yo female p/w vaginal symptoms and suprapubic pain 05/24/18 22:12 - Physicial Exam PE: 05/24/18 23:23 wnwd 23 yo female with c/o suprapubic discomfort, concerned about being head ncat neck supple lungs cta b/l cvs [id number] abd nontender ext no edema,clubbing,cyanosis skin warm and dry neuro axox3,ambulatory,no gross focal neuro deficits - Medical Decision Making 05/24/18 23:31 labs reviewed negative pregnany test no UTI std cultures sent
[2018-05-24 22:16] LABS: BASO % 0.8 % (0-2.0); EOS % 1.6 % (0-4.5); HEMATOCRIT 38.6 % (32.4-45.2); HEMOGLOBIN 13.3 GM/dL (10.7-15.3); LYMPH % 30.4 % (8-40); MCH 29.3 pg (25.7-33.7); MCHC 34.4 g/dl (32.0-36.0); MEAN CELL VOLUME 85.1 fl (80-96); MONO % 6.1 % (3.8-10.2); NEUT % 61.1 % (42.8-82.8); PLATELET COUNT 270 K/MM3 (134-434); RBC 4.53 M/mm3 (3.60-5.2); WHITE BLOOD COUNT 7.4 K/mm3 (4.0-10.0)
[2018-05-24 22:43] LABS: URINE APPEARANCE CLEAR; URINE BILIRUBIN NEGATIVE (<2.0 mg/dL); URINE COLOR LTYELLOW; URINE GLUCOSE (UA) NEGATIVE (NEGATIVE); URINE KETONE NEGATIVE (NEGATIVE); URINE LEUK ESTERASE NEGATIVE (NEGATIVE); URINE NITRITE NEGATIVE (NEGATIVE); URINE PROTEIN NEGATIVE (NEGATIVE); URINE UROBILINOGEN NEGATIVE mg/dL (0.2-1.0)
[2018-05-24 22:44] LABS: HCG,QUALITATIVE URINE Negative
[2018-05-24 22:45] LABS: ALK PHOS 69 U/L (45-117); ANION GAP 6 MMOL/L (8-16); BILIRUBIN,TOTAL 0.4 mg/dL (0.2-1); BLOOD UREA NITROGEN 16 mg/dL (7-18); CALCIUM 9.4 mg/dL (8.5-10.1); CHLORIDE 106 mmol/L (98-107); CO2 28 mmol/L (21-32); CREATININE 0.7 mg/dL (0.55-1.3); GLUCOSE,RANDOM 73 mg/dL (74-106); POTASSIUM 3.8 mmol/L (3.5-5.1); SGOT/AST 15 U/L (15-37); SGPT/ALT 17 U/L (13-61); SODIUM 140 mmol/L (136-145); TOT PROT 7.9 g/dl (6.4-8.2)
== END 2018-05-24 23:36 | disposition home or self-care (01) ==
LOC: JER 18:30
DX: R10.30 Lower abdominal pain, unspecified (principal)
CPT/HCPCS: 36415; 80053; 81003; 84702; 84703; 85025; 86850; 86900; 86901; 87081; 87086; 99281-25

== ENCOUNTER 2022-01-11 00:23 | Emergency (ER) | payer OTHER ==
[2022-01-11 00:50] VITALS: TEMP 97.6; BMI 31.7
[2022-01-11 02:46] LABS: BASO % 0.9 % (0-2.0); EOS % 1.7 % (0-4.5); HEMOGLOBIN 12.1 GM/dL (10.7-15.3); LYMPH % 25.4 % (8-40); MCH 28.6 pg (25.7-33.7); MCHC 33.7 g/dl (32.0-36.0); MEAN CELL VOLUME 84.9 fl (80-96); MEAN PLT VOLUME 8.5 fl (7.5-11.1); MONO % 5.7 % (3.8-10.2); NEUT % 66.3 % (42.8-82.8); PLATELET COUNT 313 10^3/uL (134-434); RBC 4.24 M/mm3 (3.60-5.2); RDW 12.8 % (11.6-15.6); WHITE BLOOD COUNT 7.8 K/mm3 (4.0-10.0)
[2022-01-11 02:56] LABS: CHLORIDE 107 mmol/L (98-107); SODIUM 140 mmol/L (136-145)
[2022-01-11 02:59] LABS: ALBUMIN 3.5 g/dl (3.4-5.0); ANION GAP 6 MMOL/L (8-16); BLOOD UREA NITROGEN 11.9 mg/dL (7-18); CALCIUM 8.6 mg/dL (8.5-10.1); CO2 27 mmol/L (21-32); GLUCOSE,RANDOM 87 mg/dL (74-106)
[2022-01-11 03:02] LABS: CREATININE 0.7 mg/dL (0.55-1.3); SGOT/AST 14 U/L (15-37); SGPT/ALT 15 U/L (13-61)
[2022-01-11 03:03] LABS: BILIRUBIN,TOTAL 0.4 mg/dL (0.2-1); TOT PROT 6.9 g/dl (6.4-8.2)
[2022-01-11 03:05] LABS: ALK PHOS 63 U/L (45-117)
[2022-01-11 04:14] LABS: EPI CELLS 22 /uL (0-25.1); HYALINE CASTS 0 /uL (0-3.1); URINE APPEARANCE CLEAR; URINE BACTERIA 144 /uL (0-1359); URINE BILIRUBIN NEGATIVE (NEGATIVE); URINE COLOR YELLOW; URINE GLUCOSE (UA) NEGATIVE (NEGATIVE); URINE KETONE NEGATIVE (NEGATIVE); URINE LEUK ESTERASE TRACE (NEGATIVE); URINE NITRITE NEGATIVE (NEGATIVE); URINE PROTEIN NEGATIVE (NEGATIVE); URINE RBC 32 /uL (0-23.9); URINE UROBILINOGEN 0.2 mg/dL (0.2-1.0); URINE WBC 9 /uL (0-25.8)
[2022-01-11] MEDS ORDERED: HYDROCHLOROTHIAZIDE 25 MG TABLET (FP) PO ONE (05:45)
[2022-01-11] MEDS ORDERED: HYDROCHLOROTHIAZIDE 25 MG TABLET (FP) ONE (05:55)
[2022-01-11 06:06] VITALS: BP 125/89; PULSE 76; RESP 18
== END 2022-01-11 06:43 | disposition home or self-care (01) ==
LOC: JER 00:23
DX: I10 Essential (primary) hypertension (principal)
CPT/HCPCS: 36415; 70450-TC; 71046-TC-FY; 80053; 81003; 83735; 84484; 84703; 85025; 87086; 93005; 93010; 99285-25

== ENCOUNTER 2022-02-26 11:47 | Emergency (ER) | payer OTHER ==
[2022-02-26 12:12] VITALS: BP 145/75; PULSE 102; RESP 20; TEMP 98.1; BMI 31.5
[2022-02-26] MEDS ORDERED: KETOROLAC TROMETHAMINE 15 MG/ML VIAL IVPUSH ONE (13:06)
[2022-02-26 13:42] LABS: EPI CELLS 34 /uL (0-25.1); HYALINE CASTS 1 /uL (0-3.1); PH,URINE 8.5 (5.0-8.0); URINE APPEARANCE CLOUDY; URINE BACTERIA 59 /uL (0-1359); URINE BILIRUBIN NEGATIVE (NEGATIVE); URINE COLOR DK YELLOW; URINE GLUCOSE (UA) NEGATIVE (NEGATIVE); URINE KETONE NEGATIVE (NEGATIVE); URINE LEUK ESTERASE 1+ (NEGATIVE); URINE NITRITE NEGATIVE (NEGATIVE); URINE PROTEIN 1+ (NEGATIVE); URINE RBC 7627 /uL (0-23.9); URINE UROBILINOGEN 0.2 mg/dL (0.2-1.0); URINE WBC 36 /uL (0-25.8)
[2022-02-26 13:48] LABS: BASO % 0.6 % (0-2.0); EOS % 0.9 % (0-4.5); HEMATOCRIT 39.8 % (32.4-45.2); HEMOGLOBIN 13.1 GM/dL (10.7-15.3); LYMPH % 16.4 % (8-40); MCH 27.9 pg (25.7-33.7); MCHC 32.9 g/dl (32.0-36.0); MEAN CELL VOLUME 84.9 fl (80-96); MONO % 5.5 % (3.8-10.2); NEUT % 76.6 % (42.8-82.8); PLATELET COUNT 293 10^3/uL (134-434); RBC 4.69 M/mm3 (3.60-5.2); RDW 13.6 % (11.6-15.6); WHITE BLOOD COUNT 8.8 K/mm3 (4.0-10.0)
[2022-02-26 14:11] LABS: ALBUMIN 3.5 g/dl (3.4-5.0); BLOOD UREA NITROGEN 12.4 mg/dL (7-18)
[2022-02-26 14:14] LABS: CREATININE 0.6 mg/dL (0.55-1.3)
[2022-02-26 14:16] LABS: BILIRUBIN,TOTAL 0.4 mg/dL (0.2-1); TOT PROT 6.8 g/dl (6.4-8.2)
[2022-02-26] MEDS ORDERED: KETOROLAC TROMETHAMINE 15 MG/ML VIAL ONE (14:21)
== END 2022-02-26 15:15 | disposition home or self-care (01) ==
LOC: JER 11:47
PROC: 3E033GC Introduction of Other Therapeutic Substance into Peripheral Vein, Percutaneous Approach (ICD-10-PCS; principal; 2022-02-26)
DX: N23 Unspecified renal colic (principal)
CPT/HCPCS: 36415; 80053; 81003; 83690; 84703; 85025; 87086; 99284-25

== ENCOUNTER 2023-10-04 07:47 | Emergency (ER) | payer OTHER ==
[2023-10-04 07:57] VITALS: BP 133/82; PULSE 82; RESP 16; TEMP 97.3; BMI 32.8
[2023-10-04 08:52] LABS: BASO % 0.5 % (0-2.0); EOS % 1.1 % (0-4.5); HEMATOCRIT 37.3 % (32.4-45.2); HEMOGLOBIN 12.6 GM/dL (10.7-15.3); LYMPH % 17.8 % (8-40); MCH 27.9 pg (25.7-33.7); MCHC 33.8 g/dl (32.0-36.0); MEAN CELL VOLUME 82.3 fl (80-96); MEAN PLT VOLUME 8.4 fl (7.5-11.1); MONO % 5.8 % (3.8-10.2); NEUT % 74.8 % (42.8-82.8); PLATELET COUNT 257 10^3/uL (134-434); RBC 4.53 M/mm3 (3.60-5.2); RDW 14.5 % (11.6-15.6); WHITE BLOOD COUNT 7.9 K/mm3 (4.0-10.0)
[2023-10-04 09:15] LABS: POTASSIUM 4.1 mmol/L (3.5-5.1)
[2023-10-04 09:17] LABS: ALBUMIN 3.5 g/dl (3.4-5.0); BLOOD UREA NITROGEN 14.4 mg/dL (7-18); CALCIUM 8.6 mg/dL (8.5-10.1)
[2023-10-04 09:20] LABS: CREATININE 0.7 mg/dL (0.55-1.3)
[2023-10-04 09:23] LABS: BILIRUBIN,TOTAL 0.6 mg/dL (0.2-1)
== END 2023-10-04 11:37 | disposition home or self-care (01) ==
LOC: JER 07:47
DX: G57.92 Unspecified mononeuropathy of left lower limb (principal); M79.89 Other specified soft tissue disorders
CPT/HCPCS: 36415; 80053; 85025; 93971-TC; 99284-25

== ENCOUNTER 2024-06-20 15:59 | Emergency (ER) | payer OTHER ==
[2024-06-20 16:13] VITALS: BP 121/69; PULSE 89; RESP 20; TEMP 98.5; BMI 32.6
[2024-06-20] MEDS ORDERED: ACETAMINOPHEN 500 MG TABLET (FP) ONE (16:58)
[2024-06-20] MEDS: ACETAMINOPHEN 500 MG TABLET (FP) PO ONE (17:02)
[2024-06-20 17:10] LABS: ABSOLUTE IMMATURE GRANULOCYTES 0.02 x10^3/uL (0.0-0.031); BASOPHILS # 0.05 x10^3/uL (0.01-0.08); EOSINOPHIL % 1.5 % (0.7-5.8); EOSINOPHILS # 0.12 x10^3/uL (0.04-0.36); HEMATOCRIT 39.2 % (34.1-44.9); HEMOGLOBIN 12.7 g/dL (11.2-15.7); MCHC 32.4 g/dl (32.2-35.5); MEAN CELL VOLUME 84.7 fl (79.4-94.8); MEAN PLT VOLUME 10.7 fl (9.4-12.3); MONOCYTE # 0.45 x10^3/uL (0.24-0.86); MONOCYTE % 5.6 % (4.7-12.5); PLATELET COUNT 242 x10^3/uL (182-369); RDW 13.3 % (12.1-16.5)
[2024-06-20 17:15] LABS: EPI CELLS 21 /uL (0-25.1); HYALINE CASTS 0 /uL (0-3.1); PH,URINE 6.5 (5.0-8.0); URINE APPEARANCE CLEAR; URINE BACTERIA 17 /uL (0-1359); URINE BILIRUBIN NEGATIVE (NEGATIVE); URINE COLOR YELLOW; URINE GLUCOSE (UA) NEGATIVE (NEGATIVE); URINE KETONE TRACE (NEGATIVE); URINE LEUK ESTERASE NEGATIVE (NEGATIVE); URINE NITRITE NEGATIVE (NEGATIVE); URINE PROTEIN NEGATIVE (NEGATIVE); URINE RBC 26 /uL (0-23.9); URINE WBC 5 /uL (0-25.8)
[2024-06-20 17:17] LABS: HCG,QUALITATIVE URINE NEGATIVE
[2024-06-20 17:26] LABS: CHLORIDE 106 mmol/L (98-107); POTASSIUM 4.1 mmol/L (3.5-5.1); SODIUM 139 mmol/L (136-145)
[2024-06-20 17:28] LABS: ALBUMIN 3.6 g/dl (3.4-5.0); ANION GAP 5 mmol/L (4-13); BLOOD UREA NITROGEN 10.2 mg/dL (7-18); CALCIUM 8.9 mg/dL (8.5-10.1); CO2 28 mmol/L (21-32); GLUCOSE,RANDOM 94 mg/dL (74-106)
[2024-06-20 17:31] LABS: CREATININE 0.7 mg/dL (0.55-1.3); SGOT/AST 15 U/L (15-37); SGPT/ALT 13 U/L (13-61)
[2024-06-20] MEDS ORDERED: KETOROLAC TROMETHAMINE 15 MG/ML VIAL ONE (17:31)
[2024-06-20 17:33] LABS: BILIRUBIN,TOTAL 0.7 mg/dL (0.2-1); TOT PROT 7.1 g/dl (6.4-8.2)
[2024-06-20 17:34] LABS: ALK PHOS 64 U/L (45-117)
[2024-06-20] MEDS: KETOROLAC TROMETHAMINE 15 MG/ML VIAL IVPUSH ONE (17:35)
== END 2024-06-20 20:55 | disposition left against medical advice (07) ==
LOC: JER 15:59
PROC: 3E0333Z Introduction of Anti-inflammatory into Peripheral Vein, Percutaneous Approach (ICD-10-PCS; principal; 2024-06-20)
DX: N83.201 Unspecified ovarian cyst, right side (principal); R10.31 Right lower quadrant pain
CPT/HCPCS: 36415; 76830-TC; 80053; 81003; 83735; 84702; 84703; 85025; 87086; 96374; 99285-25